=== PATIENT | female | born 1955 | race Caucasian/White ===

== ENCOUNTER 2017-01-06 19:36 | Emergency (ER) | payer BC, SELFPAY ==
--- NOTE | ~2017-01-06 | ER ---
PATIENT'S NAME: YARELI PAYNE [facility] AGE: 61 Y [address] ROOM: [place] [address] LOCATION: ED ADMIT DATE: 01/06/2017 ER/Outpatient Report DISCHARGE DATE: 01/06/2017 FAMILY PHYSICIAN: , NO ATTENDING PHYSICIAN: gR Espinoza Time of Arrival: 1936 hours. Time of Evaluation: 1940 hours. CHIEF COMPLAINT: Shortness of breath and chest pain. HISTORY OF PRESENT ILLNESS: The patient is a 61-year-old female who presents to the emergency department today with a chief complaint of shortness of breath and chest pain. She reports that she was seen over at [facility] today. She was diagnosed with pneumonia, started on Levaquin and Tessalon. She reports that after taking the medication she developed this chest pain and shortness of breath. She does have a history of allergic reactions in the past, this does feel like an allergic reaction. She denies any rash. She is having a dry cough and left-sided chest pain. Denies any fevers or chills. Pain is currently 8/10 in severity, it is sharp, it is worse with coughing. No diarrhea or constipation. No headache. PAST MEDICAL HISTORY: None reported. PAST SURGICAL HISTORY: Appendectomy and x2. SOCIAL HISTORY: The patient denies any tobacco, alcohol, or illicit drug use. ALLERGIES: TO SULFA. MEDICATIONS: 1. Tessalon Perles. 2. Levaquin. PRIMARY CARE DOCTOR: [facility]. REVIEW OF SYSTEMS: All systems are reviewed by myself and are negative with the exception of PATIENT'S NAME: YARELI PAYNE [facility] AGE: 61 Y [address] ROOM: [place] [address] LOCATION: ED ADMIT DATE: 01/06/2017 ER/Outpatient Report DISCHARGE DATE: 01/06/2017 FAMILY PHYSICIAN: PHYSICIAN, NO ATTENDING PHYSICIAN: Rg Espinoza those discussed in HPI and past medical history. PHYSICAL EXAMINATION: VITAL SIGNS: Weight 77.6 kilograms, blood pressure 152/95, pulse 96, respiratory rate 18, temperature 99.1, oxygen saturation 96% on room air. GENERAL: The patient is a 61-year-old female, appears stated age. Well developed, well nourished, in [id number] acute distress secondary to pain and shortness of breath. HEENT: Normocephalic, atraumatic. Pupils are equal, round, and reactive to light and accommodation. Extraocular motions are intact. Oropharynx is clear. There is no tonsillar swelling. There is no tongue swelling. No angioedema noted. NECK: Supple. There is no nuchal rigidity. CARDIOVASCULAR: Regular rate and rhythm. No murmurs, rubs, or gallops. LUNGS: With mild expiratory wheezes bilaterally. ABDOMEN: Soft, nontender, and nondistended. No rebound, rigidity, or guarding. MUSCULOSKELETAL: The patient has diffuse tenderness to palpation of the anterior chest wall. Moves all 4 extremities. SKIN: Warm and dry. LABORATORY DATA AND X-RAYS: Labs and x-rays are obtained. EKG was obtained at 1942 hours and interpreted by myself, shows sinus rhythm with a rate of 97, left axis deviation, normal interval. No ST elevation, ST depression, T-wave inversion. CBC is unremarkable except for white blood cell count of 11.1. D-dimer is normal. Coags are normal. CMP is unremarkable. LFTs are normal. Magnesium is normal. Cardiac enzymes are normal. ProBNP is normal. Chest x-ray is obtained and interpreted by myself, did show evidence of opacification of right lower lobe. Two-hour cardiac enzymes are normal. A repeat EKG was interpreted by myself at 2218 hours, shows sinus tachycardia with a rate of 102, left axis deviation, normal interval. No ST elevation, ST depression, or T-wave inversion noted. IMPRESSION: 1. Allergic reaction. 2. Community-acquired pneumonia, right lower lobe. 3. Initial visit. EMERGENCY DEPARTMENT COURSE: The patient was brought back to the examination room. Seen and evaluated by myself. IV was established. Laboratory analysis, imaging, and EKG were obtained as described above. The patient was given a DuoNeb breathing treatment x2. She was given Solu-Medrol 125 mg IV, 50 mg of Benadryl IV, 15 mg of Toradol IV, as well as 4 baby aspirin. She then did get 4 mg of Zofran. PATIENT'S NAME: YARELI PAYNE Tish [facility] AGE: 61 Y [address] ROOM: [place], [place] [address] LOCATION: ED ADMIT DATE: 01/06/2017 ER/Outpatient Report DISCHARGE DATE: 01/06/2017 FAMILY PHYSICIAN: PHYSICIAN, VESTA ATTENDING PHYSICIAN: Rg Espinoza I have discussed results with the patient and her at the bedside. Did recommend a 2-hour cardiac enzymes, the patient is agreeable, and those are normal. After the medications and observation here in the emergency department, she reports her symptoms are significantly improved at this time. She does not have any respiratory distress. She is up and ambulating throughout the department. PLAN: I have further discussed the results of the 2-hour cardiac enzymes. I have recommended close followup with primary care doctor in 2 to 3 days for reevaluation. I have recommended stopping the Levaquin and Tessalon Perles. I have written a prescription for azithromycin and albuterol for home. DISPOSITION: The patient discharged to home in good condition. DO JAMES KULKARNI/modl /[id number] d: 01/07/17301 t: 01/07/17 0546, OUTPATIENT REPORT
[2017-01-06 19:54] LABS: HEMATOCRIT 36.9 % (33.0-46.0); HEMOGLOBIN 12.3 g/dL (10.0-15.0); IMMATURE GRANULOCYTE % 0.4 %; LYMPHOCYTE # 2.1 K/uL (0.8-4.0); LYMPHOCYTE % 18.8 %; MCH 30.6 pg (27.0-34.0); MCHC 33.3 gm/dL (32.0-36.5); MCV 91.8 fl (83.0-98.0); MONOCYTE # 0.9 K/uL (0.0-1.0); MONOCYTE % 8.4 %; MPV 10.7 fl (9.4-12.4); NEUTROPHIL % 72.4 %; NRBC % 0 /100WBC (0-0.00); PLATELET COUNT 201 K/uL (150-450); RBC 4.02 M/uL (3.50-5.50); RDW-CV 12.7 % (11.9-14.6); WBC 11.1 K/uL (4.0-11.0)
[2017-01-06 20:10] LABS: ALBUMIN 3.5 gm/dL (3.5-5.0); ALK PHOS 77 IU/L (33-138); ALT 16 IU/L (12-78); ANION GAP 15.7 (10.0-19.0); AST 16 IU/L (10-40); BLOOD UREA NITROGEN 20 mg/dL (6-24); CALCIUM 8.9 mg/dL (8.5-10.5); CHLORIDE 108 mMol/L (96-110); CO2 23 mMol/L (22-32); CPK 137 IU/L (21-215); CREATININE 0.8 mg/dL (0.5-1.1); ESTIMATED GFR (MDRD EQUATION) > 60; MAGNESIUM 2.2 mg/dL (1.8-2.6); POTASSIUM 3.7 mMol/L (3.7-5.1); SODIUM 143 mMol/L (135-145); TOTAL BILIRUBIN 0.4 mg/dL (0.0-1.5); TOTAL PROTEIN 7.4 g/dL (6.0-8.4)
[2017-01-06 20:14] LABS: INR - (THERAPEUTIC) 0.96 (0.92-1.07); PROTIME 10.1 SECONDS (9.8-11.4); PTT 32 SECONDS (25-32)
[2017-01-06 22:13] LABS: CPK 149 IU/L (21-215)
== END 2017-01-06 22:22 | disposition disaster alternative care site (69) ==
LOC: GMED 19:36
PROVIDERS: Emergency Medicine
DX: R06.02 Shortness of breath (principal); R07.9 Chest pain, unspecified; T37.8X5A Adverse effect of other specified systemic anti-infectives and antiparasitics, initial encounter; T48.3X5A Adverse effect of antitussives, initial encounter; J18.9 Pneumonia, unspecified organism; Z88.8 Allergy status to other drugs, medicaments and biological substances; Z90.49 Acquired absence of other specified parts of digestive tract
CPT/HCPCS: J1200; J1885; J2405; J2930